=== PATIENT | male | born 1965 | race Caucasian/White ===

== ENCOUNTER 2021-12-22 16:09 | Emergency (ER) | payer MEDICAID ==
[~2021-12-22] VITALS: Ht 177.8 cm; Wt 117.9 kg
[2021-12-22 16:37] VITALS: BP 119/83
--- NOTE | 2021-12-22 16:45 | NUR ---
ANGEL. HANDED ON URINE CUP.
--- NOTE | 2021-12-22 17:31 | NUR ---
pt called by lab x2. no answer
--- NOTE | 2021-12-22 18:30 | NUR ---
3DR CALL N/APATIENT LEFT WITHOUT BEING SEEN BY DR. MANRIQUE. NO FURTHER CARE PROVIDED FOR PATIENT.
== END 2021-12-22 18:30 | disposition left against medical advice (07) ==
LOC: MED 16:09
DX: M79.89 Other specified soft tissue disorders (principal); Z53.21 Procedure and treatment not carried out due to patient leaving prior to being seen by health care provider